=== PATIENT | male | born 1965 | race Caucasian/White ===

== ENCOUNTER 2017-02-11 16:59 | Observation (INO) | payer OTHER ==
[~2017-02-11] VITALS: Ht 177.8 cm; Wt 95.0 kg
[2017-02-11 17:55] LABS: HEMATOCRIT 44.3 % (39.2-51.8); HEMOGLOBIN 14.8 g/dL (13.7-18.0); WHITE BLOOD COUNT 14.4 x10^3/uL (3.4-10)
[2017-02-11 18:07] LABS: BLOOD UREA NITROGEN 15 mg/dL (7-18)
[2017-02-11 18:12] LABS: ASPARTATE AMINO TRANSFERASE 20 U/L (15-37)
[2017-02-11] MEDS ORDERED: ONDANSETRON 2MG/ML, 2ML ONE ×2 (18:27→21:08)
[2017-02-11] MEDS ORDERED: MORPHINE SULFATE 4 MG/ML, 1ML ONE (18:27)
[2017-02-11] MEDS ORDERED: MORPHINE SULFATE 4 MG/ML, 1ML IVPush PRN ×2 (18:30→22:00)
[2017-02-11] MEDS ORDERED: ONDANSETRON 2MG/ML, 2ML IVPush ONE (18:30)
[2017-02-11] MEDS ORDERED: CEFOTETAN PMX 1GM/50ML 50 ML IV ONE (20:00)
[2017-02-11] MEDS ORDERED: CEFOTETAN PMX 1GM/50ML 50 ML ONE ×2 (20:08→21:07)
[2017-02-11] MEDS ORDERED: BUPIVACAINE/PF 0.5% ONE (20:21)
[2017-02-11] MEDS ORDERED: EPINEPHRINE 1 MG/ML, 1ML ONE (20:22)
[2017-02-11] MEDS ORDERED: ROCURONIUM 10MG/ML,5ML ONE (20:41)
[2017-02-11] MEDS ORDERED: PROPOFOL 10 MG/ML, 20ML ONE (20:41)
[2017-02-11] MEDS ORDERED: FENTANYL PF 250 MCG/5ML ONE (20:41)
[2017-02-11] MEDS ORDERED: ACETAMINOPHEN 325 MG TABLET PO PRN (21:00)
[2017-02-11] MEDS ORDERED: MEPERIDINE/PF 25MG/0.5ML IVPush PRN (21:00)
[2017-02-11] MEDS ORDERED: ALBUTEROL SULFATE 2.5 MG/3 ML NPPB PRN (21:00)
[2017-02-11] MEDS ORDERED: ONDANSETRON 2MG/ML, 2ML IVPush PRN ×2 (21:00→22:00)
[2017-02-11] MEDS ORDERED: EPHEDRINE 50 MG/ML, 1ML IVPush PRN (21:00)
[2017-02-11] MEDS ORDERED: HYDROmorphone 1 MG/ML, 1ML IV PRN (21:00)
[2017-02-11] MEDS ORDERED: METOPROLOL 1 MG/ML, 5ML IV PRN (21:00)
[2017-02-11] MEDS ORDERED: hydrALAzine 20 MG/ML, 1ML IV PRN ×2 (21:00→22:00)
[2017-02-11] MEDS ORDERED: LABETALOL 5MG/ML, 20ML IV PRN (21:00)
[2017-02-11] MEDS ORDERED: PROMETHAZINE 25 MG/ML, 1ML IV PRN (21:00)
[2017-02-11] MEDS ORDERED: OXYcodone 5 MG/5 ML ORAL.SOL UDC PO PRN (21:00)
[2017-02-11] MEDS ORDERED: FENTANYL PF 100 MCG/2ML IV PRN (21:00)
[2017-02-11] MEDS ORDERED: SUCCINYLCHOLINE 20 MG/ML, 10ML ONE (21:07)
[2017-02-11] MEDS ORDERED: DEXAMETHASONE 4 MG/ML, 1ML ONE (21:08)
[2017-02-11] MEDS ORDERED: MIDAZOLAM 1 MG/ML, 2ML ONE (21:10)
[2017-02-11] MEDS ORDERED: ROCURONIUM 10 MG/ML ONE (21:10)
[2017-02-11] MEDS ORDERED: GLYCOPYRROLATE 0.4 MG/2 ML, 2ML ONE (21:38)
[2017-02-11] MEDS ORDERED: NEOSTIGMINE 1 MG/ML, 10ML ONE (21:38)
[2017-02-11] MEDS ORDERED: LACTATED RINGERS 1,000 ML IV SCH (21:57)
[2017-02-11] MEDS ORDERED: CEFOTETAN PMX 2GM/50ML 50 ML IVPB SCH (22:00)
[2017-02-11] MEDS ORDERED: KETOROLAC 30 MG/1 ML IV PRN (22:00)
[2017-02-11] MEDS ORDERED: HYDROcodone/APAP 5/325 TABLET PO PRN (22:00)
[2017-02-11] MEDS ORDERED: ENOXAPARIN 40 MG/0.4 ML SQ SCH (22:00)
[2017-02-11] MEDS ORDERED: OMNIPAQUE 350 MG/ML, 100ML BOTTLE ONE (22:38)
[2017-02-11 23:56] VITALS: BP 118/80
[2017-02-12] VITALS: BP 124/72
[2017-02-12 07:45] VITALS: BP 103/69
[2017-02-12] MEDS ORDERED: AMOX1TAB64 PO (10:58)
[2017-02-12] MEDS ORDERED: HYDR-3240 PO (10:59)
[2017-02-12 12:43] VITALS: BP 121/67
== END 2017-02-12 12:45 | disposition home or self-care (01) ==
LOC: ED 20:23 → EDIP 20:28 → INTOOBSV 20:28 → 4NOR 23:27
PROVIDERS: ADMIT Thoracic Surgery (Cardiothoracic Vascular Surgery); ATTEND Thoracic Surgery (Cardiothoracic Vascular Surgery)
DX: Q43.0 Meckel's diverticulum (displaced) (hypertrophic) (principal); Z87.891 Personal history of nicotine dependence
CPT/HCPCS: 36415; 44800; 74177; 80053; 81003; 83690; 85025; 88304; 88341; 88342; 88360; 93005; 96365; 96372; 96375; 99285; G0378; J0171; J0330; J1100; J1650; J2250; J2405; J2704; J2710; J3010; J3490; Q9967; S0074; G0461